=== PATIENT | male | born 1950 | race Caucasian/White ===

== ENCOUNTER 2016-11-23 13:22 | Emergency (ER) | payer OTHER ==
[~2016-11-23] VITALS: Ht 167.6 cm; Wt 74.5 kg
[~2016-11-23 13:22] MED LIST: ASPI81TA28 PO; IBUP-103 PO; LEVO25TA5 PO; SIMV10TA2 PO
[2016-11-23 13:32] VITALS: TEMP 36.5; Ht 167.6 cm; Wt 74.5 kg
--- NOTE | 2016-11-23 13:56 | EMERGENCY ROOM VISIT NOTE ---
History Report prepared by Stephanieibdanielle: Kimberlee Rizzo Under the Supervision of: Dr. Prabhjot Neal M.D. First contact with patient: 13:44 Chief Complaint: IRREGULAR HEARTBEAT Stated Complaint: IRREGULAR HEART BEAT Nursing Triage Summary: Triage note: Pt reports "i noticed i have an irregular heart beat since approx 1230." pt reports he was smoking "a bit more yesterday than usual." pt denies any cardiac hx. History of Present Illness The patient is a 66 year old male who presents to the Emergency Room with complaints of an irregular heart beat that started around 1230 today. He admits to "smoking a fair amount of cigarettes yesterday". He drank "a little bit of champagne" yesterday for the holiday. He reports he has also experienced weakness and fatigue since this morning, but states he felt normal yesterday. He denies any previous cardiac history or history of hypertension. He reports he did undergo an EKG 1 week ago after experiencing dizziness after exercise, but has never seen a structural manager before. The patient takes 81 mg of Aspirin every other day. He reports he took 1 Aspirin this morning after his symptoms started. His primary care physician is through the local [facility]. Source of History: patient Onset: 1230 today Position: chest Timing: other (persistent) Modifying Factors (Worsening): other (smoke cigarettes yesterday, drank ETOH yesterday) Modifying Factors (Relieving): other (Aspirin) Associated Symptoms: + fatigue, + weakness Review of Systems See HPI for pertinent positives & negatives. A total of 10 systems reviewed and were otherwise negative. Past Medical & Surgical Medical Problems: (1) No significant past medical history Social History Smoking Status: Current Every Day Smoker Alcohol Use: none Drug Use: none Marital Status: Housing Status: lives with family Occupation Status: retired Current/Historical Medications Scheduled Aspirin (Aspirin Ec), 81 MG PO Q2D Levothyroxine Sodium (Levothyroxine Sodium), 1 TAB PO DAILY Simvastatin (Zocor), 1 TAB PO HS Scheduled PRN Ibuprofen Tab (Advil), 400 MG PO UD PRN for Pain Allergies Coded Allergies: Penicillins (Verified Allergy, Mild, 11/23/16) Tetanus Toxoid (Verified Allergy, Mild, 11/23/16) Physical Exam Vital Signs Date Time Temp Pulse Resp B/P Pulse Ox O2 Delivery O2 Flow Rate FiO2 11/23/16 15:23 97 16 143/91 97 11/23/16 14:32 96 17 95 11/23/16 14:27 103 21 96 11/23/16 14:22 99 20 96 11/23/16 14:19 98 11/23/16 14:17 93 16 94 11/23/16 14:12 97 23 94 11/23/16 14:07 112/74 11/23/16 13:56 Room Air 11/23/16 13:32 36.5 99 18 134/69 97 Room Air Physical Exam GENERAL: Patient is a healthy-appearing well-nourished HEAD: Normocephalic atraumatic EYES: Ocular movements intact pupils equal and react to light OROPHARYNX mucous membranes are moist no exudates present no erythema or edema present NECK: Supple no nuchal rigidity CHEST: Good equal expansion LUNGS: Clear and equal to auscultation CARDIAC: Normal S1 and S2 ABDOMEN: Soft nontender no guarding BACK: No CVA tenderness EXTREMITIES: No pain upon palpation normal muscle strength in all groups no clubbing cyanosis or edema NEURO: Patient is following commands is answering questions appropriately. Alert and oriented x3 Cranial Nerves 2-12 grossly intact Medical Decision & Procedures ER Provider Diagnostic Interpretation: This X-Ray was reviewed and interpreted by myself and the radiologist. SINGLE VIEW CHEST IMPRESSION: Findings suggest emphysema. There is no acute cardiopulmonary abnormality. Electronically signed by: Javi Chaparro M.D. 11/23/2016 2:50 PM Laboratory Results 11/23/16 14:19 Red Blood Count 4.65, Mean Corpuscular Volume 89.2, Mean Corpuscular Hemoglobin 32.3, Mean Corpuscular Hemoglobin Concent 36.1, Mean Platelet Volume 9.8, Neutrophils (%) (Auto) 58.5, Lymphocytes (%) (Auto) 23.9, Monocytes (%) (Auto) 11.7, Eosinophils (%) (Auto) 5.1, Basophils (%) (Auto) 0.7, Neutrophils # (Auto ) 4.25, Lymphocytes # (Auto) 1.74, Monocytes # (Auto) 0.85, Eosinophils # (Auto ) 0.37, Basophils # (Auto) 0.05 11/23/16 14:19 Test 11/23/16 14:19 11/23/16 14:26 White Blood Count 7.27 K/uL (4.8-10.8) Red Blood Count 4.65 M/uL (4.7-6.1) Hemoglobin 15.0 g/dL (14.0-18.0) Hematocrit 41.5 % (42-52) Mean Corpuscular Volume 89.2 fL (80-100) Mean Corpuscular Hemoglobin 32.3 pg (25-34) Mean Corpuscular Hemoglobin Concent 36.1 g/dl (32-36) Platelet Count 167 K/uL (130-400) Mean Platelet Volume 9.8 fL (7.4-10.4) Neutrophils (%) (Auto) 58.5 % Lymphocytes (%) (Auto) 23.9 % Monocytes (%) (Auto) 11.7 % Eosinophils (%) (Auto) 5.1 % Basophils (%) (Auto) 0.7 % Neutrophils # (Auto) 4.25 K/uL (1.4-6.5) Lymphocytes # (Auto) 1.74 K/uL (1.2-3.4) Monocytes # (Auto) 0.85 K/uL (0.11-0.59) Eosinophils # (Auto) 0.37 K/uL (0-0.5) Basophils # (Auto) 0.05 K/uL (0-0.2) RDW Standard Deviation 39.9 fL (36.4-46.3) RDW Coefficient of Variation 12.5 % (11.5-14.5) Immature Granulocyte % (Auto) 0.1 % Immature Granulocyte # (Auto) 0.01 K/uL (0.00-0.02) Est Creatinine Clear Calc Drug Dose 76.1 ml/min Estimated GFR () 104.5 Estimated GFR (Non- 90.2 BUN/Creatinine Ratio 16.9 (10-20) Calcium Level 8.4 mg/dl (8.5-10.1) Total Bilirubin 0.2 mg/dl (0.2-1) Direct Bilirubin < 0.1 mg/dl (0-0.2) Aspartate Amino Transf (AST/SGOT) 17 U/L (15-37) Alanine Aminotransferase (ALT/SGPT) 32 U/L (12-78) Alkaline Phosphatase 90 U/L (45-117) Total Creatine Kinase 153 U/L (39-308) Creatine Kinase MB 3.1 ng/ml (0.5-3.6) Creatine Kinase MB Ratio 2.0 (0-3.0) Total Protein 7.3 gm/dl (6.4-8.2) Albumin 3.7 gm/dl (3.4-5.0) Lipase 190 U/L (73-393) Bedside Hemoglobin 13.9 g/dl (14.0-18.0) Bedside Hematocrit 41 % (42-52) Bedside Sodium 142 mEq/L (135-144) Bedside Potassium 3.9 mEq/L (3.3-5.0) Bedside Chloride 103 mEq/L (101-112) Bedside Total CO2 23 mEq/l (24-31) Anion Gap 21.0 mmol/L (16-25) Bedside Blood Urea Nitrogen 17 mg/dl (7-18) Bedside Creatinine 0.8 mg/dl (0.6-1.3) Bedside Glucose (other) 112 mg/dl (70-99) Bedside Ionized Calcium (Ethan) 1.19 mmol/l (1.12-1.32) Bedside Troponin I 0.010 ng/ml (0-0.045) Labs reviewed by ED physician. ECG Indication: palpitations Rate (beats per minute): 97 Rhythm: atrial fibrillation Findings: no acute ischemic change, other (old septal infarct) ED Course 1348: Past medical records reviewed. The patient was evaluated in room B5. A complete history and physical examination was performed. 1453: I discussed the patients case with Dr. Portillo, [facility]. He recommends the patient follow up in the clinic this week. 1510: I reevaluated the patient. He is feeling well. I discussed his results and discharge instructions and he verbalized complete understanding and agreement. Medical Decision Prior records/ancillary studies reviewed. Triage Nursing notes reviewed. The patient's history was concerning for palpitations. Differential diagnosis: Etiologies such as premature contractions, electrolyte abnormality, cardiac dysrhythmia, thyroid dysfunction, pulmonary embolism, infection, gastrointestinal, as well as others were entertained. This is a healthy 66-year-old male who presents emergency department complaining of a new onset atrial fibrillation. The patient felt weaker today than normal and noted that his heartbeat seemed to be irregular. The patient is a generally healthy individual and notes no history of hypertension, diabetes , heart failure, vasculitis. He has a chads score of 1. Based on this finding I discussed the case with the structural manager on-call who felt that the patient was well enough to be discharged home for follow-up with cardiology as an outpatient. The patient has normal CK-MB and troponin function. I encouraged the patient's take 3 and 24 mg of aspirin a day until follow-up with cardiology. Patient was in agreement with the treatment plan. Consults Time Called: [phone] Consulting Physician: [facility] Returned Call: [phone] I discussed the patients case with [facility]. He recommends the patient follow up in the clinic this week. Impression Primary Impression: Atrial fibrillation Scribe Attestation The scribe's documentation has been prepared under my direction and personally reviewed by me in its entirety. I confirm that the note above accurately reflects all work, treatment, procedures, and medical decision making performed by me. Departure Information Dispostion Home / Self-Care Referrals No Doctor, Assigned (PCP) Patient Instructions A Signature Page, ED Afib, My [facility] Additional Instructions Take 324 mg Aspirin daily Follow up with DR Portillo's office this week No strenuous activity until follow up You have been examined and treated today on an emergency basis only. This is not a substitute for, or an effort to provide, complete comprehensive medical care. It is impossible to recognize and treat all injuries or illnesses in a single emergency department visit. It is therefore important that you follow up closely with your PCP. Call as soon as possible for an appointment. Thank you for your time and consideration. I look forward to speaking with you again soon. Please don't hesitate to call us if you have any questions.
[2016-11-23 14:32] LABS: BASO % 0.7 %; BASO ABS # 0.05 K/uL (0-0.2); COMPLETE YES; EOS % 5.1 %; HEMATOCRIT 41.5 % (42-52); IG% 0.1 %; LYMPH % 23.9 %; LYMPH ABS # 1.74 K/uL (1.2-3.4); MEAN CELL VOLUME 89.2 fL (80-100); MEAN CORPUSCULAR HEMOGLOBIN 32.3 pg (25-34); MEAN CORPUSCULAR HGB CONC 36.1 g/dl (32-36); MEAN PLATELET VOLUME 9.8 fL (7.4-10.4); MONO % 11.7 %; NEUT % 58.5 %; PLATELET COUNT 167 K/uL (130-400); RED BLOOD COUNT 4.65 M/uL (4.7-6.1); WHITE BLOOD COUNT 7.27 K/uL (4.8-10.8)
[2016-11-23 14:50] LABS: ALT/SGPT 32 U/L (12-78); AST/SGOT 17 U/L (15-37); BLOOD UREA NITROGEN 14 mg/dl (7-18); BUN/CREATININE RATIO 16.9 (10-20); CALCIUM 8.4 mg/dl (8.5-10.1); CARBON DIOXIDE 26 mmol/L (21-32); CHLORIDE 107 mmol/L (98-107); CREATININE 0.85 mg/dl (0.60-1.40); GLUCOSE 106 mg/dl (70-99); SODIUM 140 mmol/L (136-145)
--- NOTE | 2016-11-23 14:51 | DIAGNOSTIC IMAGING REPORT ---
SINGLE VIEW CHEST CLINICAL HISTORY: Atypical chest pain. FINDINGS: An AP, portable, upright chest radiograph is compared to study dated 06/28/2009. The cardiomediastinal silhouette is unremarkable. The lungs are hyperinflated and hyperlucent with flattening the diaphragm suggesting obstructive physiology. Nonspecific interstitial thickening is noted. No airspace consolidation or large pleural effusion is identified. Atelectasis is noted at the left lung base. No pneumothorax is seen. The bony thorax is grossly intact. IMPRESSION: Findings suggest emphysema. There is no acute cardiopulmonary abnormality. Electronically signed by: Javi Chaparro M.D. 11/23/2016 2:50 PM
[2016-11-23 14:55] LABS: ALKALINE PHOSPHATASE 90 U/L (45-117)
[2016-11-23 15:23] VITALS: BP 143/91; PULSE 97; O2SAT 97
[2016-11-23 17:35] LABS: ISTAT CREATININE 0.8 mg/dl (0.6-1.3); ISTAT HEMOGLOBIN 13.9 g/dl (14.0-18.0); ISTAT IONIZED CALCIUM 1.19 mmol/l (1.12-1.32)
== END 2016-11-23 15:24 | disposition home or self-care (01) ==
LOC: EEVIPCON 13:25 → C.EDB 13:25
DX: I48.91 Unspecified atrial fibrillation (principal); I10 Essential (primary) hypertension; J43.9 Emphysema, unspecified; F17.200 Nicotine dependence, unspecified, uncomplicated

== ENCOUNTER 2017-01-24 10:41 | Emergency (ER) | payer OTHER ==
[~2017-01-24] VITALS: Ht 167.6 cm; Wt 75.0 kg
[2017-01-24 10:44] VITALS: TEMP 36.6; Ht 167.6 cm; Wt 75.0 kg
[2017-01-24] MEDS ORDERED: SODIUM CHLORIDE 0.9% 1000ML 1,000 ML IV SCH (11:15)
--- NOTE | 2017-01-24 11:22 | EMERGENCY ROOM VISIT NOTE ---
ED Visit Note First contact with patient: 10:56 Resident Physician Supervision Note: I was present with Dr. Mas during the history and exam. I discussed the case with the resident and agree with the findings and plan as documented in the note. Documented By: Prabhjot Neal Current/Historical Medications Scheduled Aspirin (Aspirin Ec), 81 MG PO Q2D Levothyroxine Sodium (Levothyroxine Sodium), 1 TAB PO DAILY Simvastatin (Zocor), 1 TAB PO HS Scheduled PRN Ibuprofen Tab (Advil), 400 MG PO UD PRN for Pain Allergies Coded Allergies: Penicillins (Verified Allergy, Mild, 11/23/16) Tetanus Toxoid (Verified Allergy, Mild, 11/23/16) Vital Signs Date Time Temp Pulse Resp B/P Pulse Ox O2 Delivery O2 Flow Rate FiO2 01/24/17 10:44 36.6 85 20 125/71 98 Room Air Laboratory Results Test 01/24/17 11:06 Creatine Kinase MB Ratio (0-3.0) Departure Information Referrals No Doctor, Assigned (PCP) Patient Instructions My [facility]
--- NOTE | 2017-01-24 11:35 | EMERGENCY ROOM VISIT NOTE ---
History First contact with patient: 10:56 Chief Complaint: PALPITATIONS Stated Complaint: HEART MISSING BEATS Nursing Triage Summary: Pt reports palpitations since this morning denies any other sx History of Present Illness The patient is a 66 year old male who presents to the Emergency Room with complaints of palpitations this morning. He reports he felt his " heart took a break" in the morning, and was concerned about this and came in. He did not have any chest pain at any point. He felt like his heart rate was going fast at a rate of 115 bpm. He did not take any medications at this time. He relates this to smoking last night. He reports he is an intermittent smoker and is trying to quit. He has a history of atrial fibrillation in the past and doctor' s first episode was on 325 mg oral aspirin for a week and then was downgraded to 81 mg of aspirin every day which he continues to take. He also reports a history of hyperlipidemia and hypothyroidism. [facility] [place] Review of Systems See HPI for pertinent positives & negatives. A total of 10 systems reviewed and were otherwise negative. Past Medical/Surgical History Medical Problems: (1) Atrial fibrillation (2) Hyperlipidemia (3) No significant past medical history Hypothyroidism, hyperlipidemia Family History No pertinent family history Social History Smoking Status: Current Every Day Smoker Alcohol Use: none Drug Use: none Marital Status: Housing Status: lives with family Occupation Status: retired Current/Historical Medications Scheduled Aspirin (Aspirin Ec), 81 MG PO Q2D Fish Oil ([place]-3), 1 CAP PO DAILY Levothyroxine Sodium (Levothyroxine Sodium), 1 TAB PO DAILY Melatonin (Kp Melatonin), 1 TAB PO HS Multivitamin (Multivitamin), 1 TAB PO DAILY Simvastatin (Zocor), 1 TAB PO HS Allergies Coded Allergies: Penicillins (Verified Allergy, Mild, 01/24/17) Tetanus Toxoid (Verified Allergy, Mild, 01/24/17) Physical Exam Vital Signs Date Time Temp Pulse Resp B/P Pulse Ox O2 Delivery O2 Flow Rate FiO2 01/24/17 13:07 76 18 128/73 99 01/24/17 12:29 71 18 135/77 96 Room Air 01/24/17 11:34 77 01/24/17 10:44 36.6 85 20 125/71 98 Room Air Physical Exam GENERAL: Awake, alert, well-appearing, in no acute distress HENT: Normocephalic, atraumatic. Oropharynx unremarkable. EYES: Normal conjunctiva. Sclera non-icteric. NECK: Supple. No nuchal rigidity. FROM. No JVD. RESPIRATORY: Clear to auscultation. CARDIAC: Regular rate, normal rhythm. Extremities warm and well perfused. Pulses equal. ABDOMEN: Soft, non-distended. No tenderness to palpation. No rebound or guarding. No masses. RECTAL: Deferred. MUSCULOSKELETAL: Chest examination reveals no tenderness. The back is symmetrical on inspection without obvious abnormality. There is no CVA tenderness to palpation. No joint edema. LOWER EXTREMITIES: Calves are equal size bilaterally and non-tender. No edema. No discoloration. NEURO: Normal sensorium. No sensory or motor deficits noted. SKIN: Small 4mm macules on inner calves, bilaterally. Nontender, no induration, erythema, or exudate. Medical Decision & Procedures Laboratory Results 01/24/17 11:15 Red Blood Count 4.97, Mean Corpuscular Volume 88.9, Mean Corpuscular Hemoglobin 32.2, Mean Corpuscular Hemoglobin Concent 36.2, Mean Platelet Volume 9.9, Neutrophils (%) (Auto) 65.5, Lymphocytes (%) (Auto) 18.9, Monocytes (%) (Auto) 10.8, Eosinophils (%) (Auto) 4.3, Basophils (%) (Auto) 0.4, Neutrophils # (Auto ) 4.69, Lymphocytes # (Auto) 1.35, Monocytes # (Auto) 0.77, Eosinophils # (Auto ) 0.31, Basophils # (Auto) 0.03 01/24/17 11:15 Test 01/24/17 11:15 01/24/17 12:29 White Blood Count 7.16 K/uL (4.8-10.8) Red Blood Count 4.97 M/uL (4.7-6.1) Hemoglobin 16.0 g/dL (14.0-18.0) Hematocrit 44.2 % (42-52) Mean Corpuscular Volume 88.9 fL (80-100) Mean Corpuscular Hemoglobin 32.2 pg (25-34) Mean Corpuscular Hemoglobin Concent 36.2 g/dl (32-36) Platelet Count 165 K/uL (130-400) Mean Platelet Volume 9.9 fL (7.4-10.4) Neutrophils (%) (Auto) 65.5 % Lymphocytes (%) (Auto) 18.9 % Monocytes (%) (Auto) 10.8 % Eosinophils (%) (Auto) 4.3 % Basophils (%) (Auto) 0.4 % Neutrophils # (Auto) 4.69 K/uL (1.4-6.5) Lymphocytes # (Auto) 1.35 K/uL (1.2-3.4) Monocytes # (Auto) 0.77 K/uL (0.11-0.59) Eosinophils # (Auto) 0.31 K/uL (0-0.5) Basophils # (Auto) 0.03 K/uL (0-0.2) RDW Standard Deviation 39.9 fL (36.4-46.3) RDW Coefficient of Variation 12.5 % (11.5-14.5) Immature Granulocyte % (Auto) 0.1 % Immature Granulocyte # (Auto) 0.01 K/uL (0.00-0.02) Anion Gap 7.0 mmol/L (3-11) Est Creatinine Clear Calc Drug Dose 66.6 ml/min Estimated GFR () 93.2 Estimated GFR (Non- 80.5 BUN/Creatinine Ratio 13.6 (10-20) Calcium Level 9.0 mg/dl (8.5-10.1) Total Bilirubin 0.4 mg/dl (0.2-1) Aspartate Amino Transf (AST/SGOT) 27 U/L (15-37) Alanine Aminotransferase (ALT/SGPT) 49 U/L (12-78) Alkaline Phosphatase 85 U/L (45-117) Total Creatine Kinase 342 U/L (39-308) Creatine Kinase MB 8.6 ng/ml (0.5-3.6) Creatine Kinase MB Ratio 2.5 (0-3.0) Total Protein 7.6 gm/dl (6.4-8.2) Albumin 3.9 gm/dl (3.4-5.0) Globulin 3.7 gm/dl (2.5-4.0) Albumin/Globulin Ratio 1.1 (0.9-2) Bedside Troponin I 0.000 ng/ml (0-0.045) Medications Administered Medications (Trade) Dose Ordered Sig/Adán Route Start Time Stop Time Status Last Admin Dose Admin Sodium Chloride (Nss 1000ml) 1,000 ml @ 999 mls/hr Q1H1M IV 01/24/17 11:15 01/24/17 13:21 DC 01/24/17 11:15 999 MLS/HR ED Course 1106 I evaluated the patient here in room B4B. A complete history and physical examination were performed. 1115: I discussed the case with Dr. Neal, attending physician. I ordered a CBC, CMP, cardiac enzymes, chest x-ray, and 1 L of normal saline for fluid rehydration. 1215: I reevaluated the patient. He had not had any further palpitations. We discussed his chest x-ray findings of emphysema. He reports he has inhalers at home and doesn't always use them. I offered him a DuoNeb treatment and he declined this. I informed him that his lab work was unremarkable and we were waiting for a repeat 90 minute troponin to be obtained. 1229: His repeat troponin level was negative. 1257: He was discharged home in good condition. Medical Decision This is a 66-year-old male with paroxysmal atrial fibrillation who presents with tachycardia this morning. Currently he is not in atrial fibrillation and his rate is well controlled. Differential includes cardiac ischemia, pneumonia , dehydration, thyroxicosis, electrolyte abnormality. He had an IV placed and labs drawn. He had a complete workup including chest x-ray and CBC, CMP, cardiac enzymes. His lab work was unremarkable. His chest x-ray did show signs of emphysema, which I discussed with him. I offered to give him a DuoNeb treatment which he declined. He had 2 negative troponins. He was discharged home in good condition. He was advised to follow-up with his PCP and discuss getting a Holter monitor for evaluation of his palpitations. He then mentioned that he had a stress test and was due for another stress test at [place], but had not gotten this yet. He was strongly encouraged to arrange this as an outpatient. Impression Primary Impression: Palpitations Departure Information Dispostion Home / Self-Care Condition GOOD Referrals No Doctor, Assigned (PCP) Patient Instructions My [facility] Resident Tracking Resident Involvement: Resident Care Provided Care Provided: Adult ED
[2017-01-24 11:38] LABS: BASO % 0.4 %; BASO ABS # 0.03 K/uL (0-0.2); COMPLETE YES; EOS % 4.3 %; HEMATOCRIT 44.2 % (42-52); IG% 0.1 %; LYMPH % 18.9 %; LYMPH ABS # 1.35 K/uL (1.2-3.4); MEAN CELL VOLUME 88.9 fL (80-100); MEAN CORPUSCULAR HEMOGLOBIN 32.2 pg (25-34); MEAN CORPUSCULAR HGB CONC 36.2 g/dl (32-36); MEAN PLATELET VOLUME 9.9 fL (7.4-10.4); MONO % 10.8 %; NEUT % 65.5 %; PLATELET COUNT 165 K/uL (130-400); RED BLOOD COUNT 4.97 M/uL (4.7-6.1); WHITE BLOOD COUNT 7.16 K/uL (4.8-10.8)
--- NOTE | 2017-01-24 11:45 | DIAGNOSTIC IMAGING REPORT ---
SINGLE VIEW CHEST CLINICAL HISTORY: Palpitations. FINDINGS: An AP, portable, upright chest radiograph is compared to study dated 11/23/2016. The cardiomediastinal silhouette is unremarkable. Findings suggest emphysema. Chronic interstitial thickening is unchanged. There is bibasilar atelectasis. No airspace consolidation is identified typical for pneumonia and there is no pleural effusion. No pneumothorax is seen. The bony thorax is grossly intact. IMPRESSION: Findings suggest obstructive physiology. No acute cardiopulmonary abnormality is identified. Electronically signed by: Javi Chaparro M.D. 01/24/2017 11:44 AM Dictated Date/Time: 01/24/2017 11:43 AM
[2017-01-24] MEDS ORDERED: OMEG10007 PO (11:55)
[2017-01-24] MEDS ORDERED: MULT-506 PO (11:55)
[2017-01-24] MEDS ORDERED: MELA1TAB5 PO (11:55)
[2017-01-24 11:58] LABS: BUN/CREATININE RATIO 13.6 (10-20); CREATININE 0.97 mg/dl (0.60-1.40); POTASSIUM 3.7 mmol/L (3.5-5.1)
[2017-01-24 12:03] LABS: ALB/GLOB RATIO 1.1 (0.9-2); CKMB/CK RATIO 2.5 (0-3.0)
[2017-01-24 13:07] VITALS: BP 128/73; PULSE 76; O2SAT 99
== END 2017-01-24 13:08 | disposition home or self-care (01) ==
LOC: C.EDB 10:45
DX: R00.2 Palpitations (principal); I48.91 Unspecified atrial fibrillation; E78.5 Hyperlipidemia, unspecified; E03.9 Hypothyroidism, unspecified; Z79.82 Long term (current) use of aspirin; Z79.899 Other long term (current) drug therapy; Z88.0 Allergy status to penicillin; Z88.7 Allergy status to serum and vaccine; F17.200 Nicotine dependence, unspecified, uncomplicated

== ENCOUNTER 2017-03-25 18:46 | Emergency (ER) | payer OTHER ==
[~2017-03-25] VITALS: Ht 167.6 cm; Wt 74.0 kg
[~2017-03-25 18:46] MED LIST changes: -IBUP-103 PO; +MELA1TAB5 PO; +MULT-506 PO; +OMEG10007 PO
[2017-03-25 18:50] VITALS: TEMP 36.9; Ht 167.6 cm; Wt 74.0 kg
[2017-03-25 19:42] LABS: BASO % 0.5 %; BASO ABS # 0.04 K/uL (0-0.2); COMPLETE YES; EOS % 4.7 %; HEMATOCRIT 42.2 % (42-52); IG% 0.3 %; LYMPH % 31.3 %; LYMPH ABS # 2.33 K/uL (1.2-3.4); MEAN CELL VOLUME 89.4 fL (80-100); MEAN CORPUSCULAR HGB CONC 35.8 g/dl (32-36); MEAN PLATELET VOLUME 9.5 fL (7.4-10.4); MONO % 7.8 %; NEUT % 55.4 %; PLATELET COUNT 153 K/uL (130-400); RED BLOOD COUNT 4.72 M/uL (4.7-6.1); WHITE BLOOD COUNT 7.45 K/uL (4.8-10.8)
--- NOTE | 2017-03-25 19:49 | DIAGNOSTIC IMAGING REPORT ---
SINGLE VIEW CHEST CLINICAL HISTORY: Atypical chest pain. FINDINGS: An AP, portable, upright chest radiograph is compared to study dated 01/24/2017. The examination is mildly degraded by portable technique and patient rotation. The heart is top normal for projection. Chronic interstitial thickening is similar to previous. There is linear atelectasis versus scarring at the left lung base. No airspace consolidation is seen typical for pneumonia and there is no pleural effusion. No pneumothorax is seen. The bony thorax is grossly intact. IMPRESSION: No acute cardiopulmonary abnormality. Electronically signed by: Javi Chaparro M.D. 03/25/2017 7:48 PM Dictated Date/Time: 03/25/2017 7:46 PM
[2017-03-25 19:52] LABS: CREATININE 0.97 mg/dl (0.60-1.40)
[2017-03-25 19:53] LABS: BUN/CREATININE RATIO 13.3 (10-20); CALCIUM 9.1 mg/dl (8.5-10.1); MAGNESIUM 2.3 mg/dl (1.8-2.4); POTASSIUM 3.8 mmol/L (3.5-5.1)
[2017-03-25 19:54] LABS: PROTHROMBIN TIME (PATIENT) 10.5 SECONDS (9.0-12.0)
[2017-03-25 20:01] LABS: CKMB/CK RATIO 1.7 (0-3.0); THYROID STIMULATING HORMONE 0.967 uIu/ml (0.300-4.500)
[2017-03-25 21:57] VITALS: BP 147/84; PULSE 70; O2SAT 97
--- NOTE | 2017-03-27 12:17 | EMERGENCY ROOM VISIT NOTE ---
History Report prepared by Stephanieibdanielle: Erika Torres Under the Supervision of: Dr. Campbell Dyer M.D. First contact with patient: 19:19 Chief Complaint: CARDIAC ASSESSMENT Stated Complaint: HEART SKIPPING BEATS, PAIN IN L SHOULDER History of Present Illness The patient is a 66 year old male who presents to the Emergency Room with complaints of heart skipping beats earlier today. The symptoms have resolved upon arrival to the ED. 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 His heart rate was not elevated, but it was skipping beats. He stopped working and took a nap, but the symptoms persisted when he woke up. He was seen in the ED with similar symptoms 1 month ago. He also reports left shoulder pain. It feels stiff and hard to move. He denies any lightheadedness, dizziness , nausea, vomiting, SOB, and chest pain. He has been keeping up with his fluids. He denies any sick contacts or recent travel. He has a history of A fib , high cholesterol, hypothyroidism, and COPD. He is on aspirin. He denies any medications changes recently. He is trying to quit smoking. Source of History: patient Onset: earlier today Position: other (cardiac) Quality: other (skipping beats) Timing: resolved Associated Symptoms: No SOB, No chest pain, No nausea, No vomiting Note: Pt reports left shoulder pain. Pt denies lightheadedness, dizziness. Review of Systems See HPI for pertinent positives & negatives. A total of 10 systems reviewed and were otherwise negative. Past Medical & Surgical Medical Problems: (1) Asthma (2) Atrial fibrillation (3) Heart disease (4) Hyperlipidemia (5) No significant past medical history Surgical Problems: (1) S/P appendectomy Old medical records were reviewed. Nurse's notes were reviewed and I agree with. Family History No pertinent family history stated. Social History Smoking Status: Current Every Day Smoker Alcohol Use: none Drug Use: none Marital Status: single Housing Status: lives with roommate Occupation Status: employed Current/Historical Medications Scheduled Aspirin (Aspirin Ec), 81 MG PO Q2D Fish Oil (Hankamer-3), 1 CAP PO DAILY Levothyroxine Sodium (Levothyroxine Sodium), 1 TAB PO DAILY Melatonin (Kp Melatonin), 1 TAB PO HS Multivitamin (Multivitamin), 1 TAB PO DAILY Simvastatin (Zocor), 1 TAB PO HS Allergies Coded Allergies: Penicillins (Verified Allergy, Mild, 5/3/17) Tetanus Toxoid (Verified Allergy, Mild, 03/25/17) Physical Exam Vital Signs Date Time Temp Pulse Resp B/P Pulse Ox O2 Delivery O2 Flow Rate FiO2 03/25/17 21:57 70 20 147/84 97 03/25/17 20:50 73 14 98 03/25/17 20:45 79 22 95 03/25/17 20:30 134/75 03/25/17 20:15 69 12 96 03/25/17 20:00 134/81 03/25/17 19:45 80 16 95 03/25/17 19:40 76 16 134/81 95 Room Air 03/25/17 19:35 95 Room Air 03/25/17 19:16 78 15 03/25/17 19:03 79 03/25/17 18:50 36.9 81 20 148/84 95 Room Air Physical Exam General: Non ill-appearing middle aged male in no acute distress. Well developed well nourished, breathing comfortably on room air. Normal speech HEENT: Normal cephalic atraumatic. Pupils are equal round and reactive to light. Extraocular movements are intact. Oropharynx is pink with moist mucous membranes. No swelling of the mouth lips or tongue. Neck: Supple with a midline trachea. No meningeal signs or stiffness, no JVD or bruits. No Stridor. Chest: Clear to auscultation bilaterally. No wheezes or rhonchi. No increased work of breathing. Heart: regular rate and rhythm. Abdomen: Soft nontender, nondistended without rebound guarding or rigidity. Extremities: No cyanosis clubbing or edema. No calf tenderness or assymetry Spine/Back. Non tender to palpation. No CVA tenderness Skin: Good turgor without rashes. Neurologic exam: Cranial nerves two through 12 are intact. Motor and sensation are intact and symmetrical throughout. Medical Decision & Procedures ER Provider Diagnostic Interpretation: X-ray results as stated below per interpretation by me and the radiologist: SINGLE VIEW CHEST CLINICAL HISTORY: Atypical chest pain. FINDINGS: An AP, portable, upright chest radiograph is compared to study dated 01/24/2017. The examination is mildly degraded by portable technique and patient rotation. The heart is top normal for projection. Chronic interstitial thickening is similar to previous. There is linear atelectasis versus scarring at the left lung base. No airspace consolidation is seen typical for pneumonia and there is no pleural effusion. No pneumothorax is seen. The bony thorax is grossly intact. IMPRESSION: No acute cardiopulmonary abnormality. Electronically signed by: Javi Chaparro M.D. 03/25/2017 7:48 PM Dictated Date/Time: 03/25/2017 7:46 PM Laboratory Results 03/25/17 19:25 Red Blood Count 4.72, Mean Corpuscular Volume 89.4, Mean Corpuscular Hemoglobin 32.0, Mean Corpuscular Hemoglobin Concent 35.8, Mean Platelet Volume 9.5, Neutrophils (%) (Auto) 55.4, Lymphocytes (%) (Auto) 31.3, Monocytes (%) (Auto) 7.8, Eosinophils (%) (Auto) 4.7, Basophils (%) (Auto) 0.5, Neutrophils # (Auto) 4.13, Lymphocytes # (Auto) 2.33, Monocytes # (Auto) 0.58, Eosinophils # (Auto) 0.35, Basophils # (Auto) 0.04 03/25/17 19:25 Test 03/25/17 19:25 03/25/17 19:40 White Blood Count 7.45 K/uL (4.8-10.8) Red Blood Count 4.72 M/uL (4.7-6.1) Hemoglobin 15.1 g/dL (14.0-18.0) Hematocrit 42.2 % (42-52) Mean Corpuscular Volume 89.4 fL (80-100) Mean Corpuscular Hemoglobin 32.0 pg (25-34) Mean Corpuscular Hemoglobin Concent 35.8 g/dl (32-36) Platelet Count 153 K/uL (130-400) Mean Platelet Volume 9.5 fL (7.4-10.4) Neutrophils (%) (Auto) 55.4 % Lymphocytes (%) (Auto) 31.3 % Monocytes (%) (Auto) 7.8 % Eosinophils (%) (Auto) 4.7 % Basophils (%) (Auto) 0.5 % Neutrophils # (Auto) 4.13 K/uL (1.4-6.5) Lymphocytes # (Auto) 2.33 K/uL (1.2-3.4) Monocytes # (Auto) 0.58 K/uL (0.11-0.59) Eosinophils # (Auto) 0.35 K/uL (0-0.5) Basophils # (Auto) 0.04 K/uL (0-0.2) RDW Standard Deviation 39.6 fL (36.4-46.3) RDW Coefficient of Variation 12.2 % (11.5-14.5) Immature Granulocyte % (Auto) 0.3 % Immature Granulocyte # (Auto) 0.02 K/uL (0.00-0.02) Prothrombin Time 10.5 SECONDS (9.0-12.0) Prothromb Time International Ratio 1.0 (0.9-1.1) Activated Partial Thromboplast Time 26.6 SECONDS (21.0-31.0) Partial Thromboplastin Ratio 1.0 Anion Gap 5.0 mmol/L (3-11) Est Creatinine Clear Calc Drug Dose 66.6 ml/min Estimated GFR () 93.2 Estimated GFR (Non- 80.5 BUN/Creatinine Ratio 13.3 (10-20) Calcium Level 9.1 mg/dl (8.5-10.1) Magnesium Level 2.3 mg/dl (1.8-2.4) Total Bilirubin 0.4 mg/dl (0.2-1) Direct Bilirubin 0.1 mg/dl (0-0.2) Aspartate Amino Transf (AST/SGOT) 22 U/L (15-37) Alanine Aminotransferase (ALT/SGPT) 45 U/L (12-78) Alkaline Phosphatase 77 U/L (45-117) Total Creatine Kinase 281 U/L (39-308) Creatine Kinase MB 4.9 ng/ml (0.5-3.6) Creatine Kinase MB Ratio 1.7 (0-3.0) Total Protein 7.3 gm/dl (6.4-8.2) Albumin 4.0 gm/dl (3.4-5.0) Lipase 112 U/L (73-393) Thyroid Stimulating Hormone (TSH) 0.967 uIu/ml (0.300-4.500) Bedside Troponin I 0.020 ng/ml (0-0.045) Laboratory studies as stated above per my review. ECG Indication: palpitations Rate (beats per minute): 80 Rhythm: normal sinus Findings: no acute ischemic change, no ectopy, other (normal interval) Comparison ECG Date: 24-Jan-2017 Change: no significant change Change: Repeat EKG: NSR 66, no acute ischemic changes, no ectopy, no change compared to previous EKG. ED Course 1927: Past medical records reviewed. The patient was evaluated in room B6, and a complete history and physical examination were performed. 2156: Upon reevaluation, the patient is feeling better. I discussed the results and treatment plan with him. He verbalized agreement of the treatment plan. The patient was discharged home. Medical Decision Differential diagnosis: palpitations, arrhythmia, acute coronary syndrome, thyroid disease, electrolyte or metabolic abnormality. Medication reconciliation : I have personally reviewed this patient's medication list. He is not on any blood thinners. This patient comes in as described above. He had some palpitations. He looks and feels well now. No chest pain or shortness of breath. 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 He has nothing to suggest acute coronary syndrome or arrhythmia at this point. His troponin is within normal limits. He looks good. He has no electrode or metabolic abnormality. Chest x-ray is unremarkable does not show congestive heart failure , pneumonia, or pneumothorax. He does have a history of this in he may have had A. fib in the past as well. I encouraged him to follow up with his regular doctor. At this point he has no evidence of A. fib. He was encouraged to return if he has recurrence of symptoms, chest pain, shortness of breath, fever or chills, any new problems or concerns. He is happy with plan and discharged to home. Impression Primary Impression: Palpitations Scribe Attestation The scribe's documentation has been prepared under my direction and personally reviewed by me in its entirety. I confirm that the note above accurately reflects all work, treatment, procedures, and medical decision making performed by me. Departure Information Dispostion Home / Self-Care Referrals No Doctor, Assigned (PCP) Forms IMPORTANT VISIT INFORMATION Patient Instructions My [facility] Additional Instructions Rest. Drink plenty of fluids. Return if: Worsening of symptoms, fever or chills, shortness of breath, chest pain, any new problems or concerns Follow-up with your doctor in 1-2 days for recheck.
== END 2017-03-25 21:58 | disposition home or self-care (01) ==
LOC: C.EDB 18:48
DX: R00.2 Palpitations (principal); J45.909 Unspecified asthma, uncomplicated; E78.5 Hyperlipidemia, unspecified; I48.91 Unspecified atrial fibrillation; F17.200 Nicotine dependence, unspecified, uncomplicated; Z90.89 Acquired absence of other organs; Z79.82 Long term (current) use of aspirin; Z79.899 Other long term (current) drug therapy